=== PATIENT | female | born 1975 | race Caucasian/White ===

== ENCOUNTER 2020-03-27 09:50 | Emergency (ER) | payer OTHER ==
[2020-03-27 11:54] LABS: THROAT:GRP A STREP ANTIGEN Negative (Negative)
== END 2020-03-27 10:50 | disposition home or self-care (01) ==
LOC: JVIRT 09:50
DX: Z03.818 Encounter for observation for suspected exposure to other biological agents ruled out (principal); J06.9 Acute upper respiratory infection, unspecified
CPT/HCPCS: 87070; 87804; 87880; C9803; Q3014-GT; U0003

== ENCOUNTER 2020-07-12 10:07 | Emergency (ER) | payer OTHER | END 2020-07-12 11:29 | disposition home or self-care (01) | LOC: JVIRT 10:07 | DX: U07.1 COVID-19 (principal) | CPT/HCPCS: C9803; G2251-GT; U0003 ==